=== PATIENT | male | born 2000 | race Caucasian/White ===

== ENCOUNTER 2024-07-19 02:32 | Emergency (ER) | payer BC, SELFPAY ==
--- NOTE | 2024-07-19 08:25 | EDPHYS ---
Physician Documentation [facility] Name: Jung Russell Age: 23 yrs Sex: Male : 2000 Arrival Date: 07/19/2024 Time: 02:32 Bed 15 Private MD: ED Physician Jeffry Arthur HPI: 07/19 03:11 This 23 yrs old White Male presents to ER via Ambulatory with complaints of Ear Pain, rn Cough, Congestion. 03:11 The patient presents with pain. Onset: The symptoms/episode began/occurred 5 day(s) rn ago. Modifying factors: The symptoms are alleviated by nothing, the symptoms are aggravated by nothing. Severity of symptoms: At their worst the symptoms were moderate in the emergency department the symptoms have improved. The patient has not experienced similar symptoms in the past. Patient reports 5 days of cough, congestion and left ear pain. Left ear pain got worse and worse until this morning felt some relief but noticed some drainage out of left ear. No fever or chills. Decreased hearing left ear. Historical: - Allergies: 02:53 No Known Allergies; cp4 - Immunization history:: Adult Immunizations up to date. - Infectious Disease History:: Denies. - Social history:: Smoking status: Patient denies any tobacco usage or history of. - Family history:: not pertinent. - Hospitalizations: : No recent hospitalization is reported. ROS: 03:11 Constitutional: Negative for fever, chills, and weight loss, ENT: Positive for rn congestion and left ear pain Cardiovascular: Negative for chest pain, palpitations, and edema, Respiratory: Positive for cough, negative for shortness of breath Abdomen/GI: Negative for abdominal pain, nausea, vomiting, diarrhea, and constipation, MS/Extremity: Negative for injury and deformity, Exam: 03:11 Constitutional: This is a well developed, well nourished patient who is awake, alert, rn and in no acute distress. Head/Face: Normocephalic, atraumatic. Eyes: Periorbital areas with no swelling, redness, or edema. ENT: Left TM erythematous and swollen. No obvious perforation. Yellow canal drainage Vital Signs: 02:51 BP 136 / 77; Pulse 87; Resp 18; Temp 97.9; Pulse Ox 98% ; Weight 68.04 kg; Height 6 ft. cp4 0 in. ; Pain 9/10; 03:37 BP 117 / 58; Pulse 84; Resp 18; Pulse Ox 99% ; cp4 02:51 Body Mass Index 20.34 (68.04 kg, 182.88 cm) cp4 02:51 Pain Scale: Adult cp4 MDM: 02:48 Medical Screening Exam initiated rn 03:11 Differential diagnosis: otitis media, otitis externa, ruptured TM, acute otalgia, rn serotympanum. Data reviewed: vital signs, nurses notes, and as a result, I will discharge patient. Counseling: I had a detailed discussion with the patient and/or guardian regarding the historical points, exam findings, and any diagnostic results supporting the discharge/admit diagnosis, the need for outpatient follow up, to return to the emergency department if symptoms worsen or persist or if there are any questions or concerns that arise at home. Special discussion: I discussed with the patient/guardian in detail that at this point there is no indication for admission to the hospital. It is understood, however, that if the symptoms persist or worsen the patient needs to return immediately for re-evaluation. Administered Medications: 03:37 Drug: Amoxicillin-Clavulanate PO 875 mg PO once Route: PO; cp4 03:37 Follow up: Response: No adverse reaction cp4 Disposition Summary: 07/19/24 03:16 Discharge Ordered Notes: Location: Home rn Problem: new rn Symptoms: have improved rn Condition: Stable rn Diagnosis - Otitis media, unspecified, left ear rn Followup: rn - With: Private Physician - When: As needed - Reason: Recheck today's complaints, Re-evaluation by your physician Discharge Instructions: - Discharge Summary Sheet rn - Otitis Media, Adult rn Forms: - Medication Reconciliation Form rn - Antibiotic skeins yarn examiner - Prescription Opioid Use rn - Patient Portal Instructions rn - Leadership Thank You Letter rn Prescriptions: - gabapentin 100 mg Oral capsule - take 1 capsule ORAL route 2 times per day As needed; 14 capsule; Refills: 0, rn Product Selection Permitted - Augmentin 875-125 mg Oral Tablet - take 1 tablet ORAL route every 12 hours for 10 days; 20 tablet; Refills: 0, rn Product Selection Permitted Signatures: Jeffry Arthur MD MD rn Potter, Christina cp4
--- NOTE | 2024-07-19 08:25 | ER ---
Nurse's Notes [facility] Name: Jung Russell Age: 23 yrs Sex: Male : 2000 Arrival Date: 07/19/2024 Time: 02:32 Bed 15 Private MD: Diagnosis: Otitis media, unspecified, left ear Presentation: 07/19 02:51 Chief complaint: Patient states: left ear pain and generalized body aches. States ear cp4 started draining today. Coronavirus screen: Client denies travel out of the [place] in the last 14 days. At this time, the client does not indicate any symptoms associated with coronavirus-19. Ebola Screen: Patient negative for fever greater than or equal to 101.5 degrees Fahrenheit, and additional compatible Ebola Virus Disease symptoms Patient denies exposure to infectious person. Patient denies travel to an Ebola-affected area in the 21 days before illness onset. No symptoms or risks identified at this time. Initial Sepsis Screen: Does the patient meet any 2 criteria? No. Patient's initial sepsis screen is negative. Does the patient have a suspected source of infection? No. Patient's initial sepsis screen is negative. Risk Assessment: Do you want to hurt yourself or someone else? Patient reports no desire to harm self or others. Onset of symptoms was July 15, 2024. 02:51 Method Of Arrival: Ambulatory cp4 02:51 Acuity: ERASMO 4 cp4 Triage Assessment: 02:53 General: Appears in no apparent distress. comfortable, Behavior is calm, cooperative, cp4 appropriate for age. Pain: Complains of pain in left ear. EENT: No deficits noted. Pinna with no deformity noted on left ear. Neuro: Level of Consciousness is awake, alert, obeys commands, Oriented to person, place, time, situation. Cardiovascular: Patient's skin is warm and dry. Respiratory: Airway is patent Respiratory effort is even, unlabored. GI: No signs and/or symptoms were reported involving the gastrointestinal system. : No signs and/or symptoms were reported regarding the genitourinary system. Derm: No signs and/or symptoms reported regarding the dermatologic system. Musculoskeletal: No signs and/or symptoms reported regarding the musculoskeletal system. Historical: - Allergies: 02:53 No Known Allergies; cp4 - Immunization history:: Adult Immunizations up to date. - Infectious Disease History:: Denies. - Social history:: Smoking status: Patient denies any tobacco usage or history of. - Family history:: not pertinent. - Hospitalizations: : No recent hospitalization is reported. Screenin:55 [facility] ED Fall Risk Assessment (Adult) History of falling in the last 3 months, cp4 including since admission No falls in past 3 months (0 pts) Confusion or Disorientation No (0 pts) Intoxicated or Sedated No (0 pts) Impaired Gait No (0 pts) Mobility Assist Device Used No (0 pt) Altered Elimination No (0 pt) Score/Fall Risk Level 0 - 2 = Low Risk Oriented to surroundings, Maintained a safe environment, Assessed \T\ reinforced patient's understanding of fall precautions, Hourly rounding (assess needs \T\ fall precautionary measures) done. Abuse screen: Denies threats or abuse. Nutritional screening: No deficits noted. Tuberculosis screening: No symptoms or risk factors identified. Assessment: 02:55 Reassessment: No changes from previously documented assessment. cp4 Vital Signs: 02:51 BP 136 / 77; Pulse 87; Resp 18; Temp 97.9; Pulse Ox 98% ; Weight 68.04 kg; Height 6 ft. cp4 0 in. ; Pain 9/10; 03:37 BP 117 / 58; Pulse 84; Resp 18; Pulse Ox 99% ; cp4 02:51 Body Mass Index 20.34 (68.04 kg, 182.88 cm) cp4 02:51 Pain Scale: Adult cp4 ED Course: 02:45 Patient arrived in ED. gm2 02:48 Jeffry Arthur MD is Attending Physician. rn 02:48 Ida David is Primary Nurse. cp4 02:53 Triage completed. cp4 02:53 Arm band placed on right wrist. Patient placed in waiting room. cp4 02:55 Bed in low position. Call light in reach. Side rails up X 1. Provided Education on: ear cp4 pain. 02:55 No provider procedures requiring assistance completed. cp4 03:37 intact, bleeding controlled, No redness/swelling at site. Pressure dressing applied. cp4 Administered Medications: 03:37 Drug: Amoxicillin-Clavulanate PO 875 mg PO once Route: PO; cp4 03:37 Follow up: Response: No adverse reaction cp4 Medication: 02:55 VIS not applicable for this client. cp4 Outcome: 03:16 Discharge ordered by . rn 03:37 Discharged to home ambulatory, cp4 03:37 Condition: stable 03:37 Discharge instructions given to patient, Instructed on discharge instructions, follow up and referral plans. medication usage, Demonstrated understanding of instructions, follow-up care, medications, Prescriptions given X 2, 03:38 Patient left the ED. cp4 Signatures: Jeffry Arthur MD MD rn Potter, Christina cp4 Mitchell, Ginger [facility]
[2024-07-19 09:03] VITALS: TEMP 97.9
[2024-07-19 09:12] VITALS: BP 117/58; O2SAT 99
== END 2024-07-19 03:38 | disposition home or self-care (01) ==
LOC: ER 02:32
DX: H66.92 Otitis media, unspecified, left ear (principal); R05.9 Cough, unspecified
CPT/HCPCS: 99283

== ENCOUNTER 2024-08-01 21:37 | Emergency (ER) | payer BC ==
--- NOTE | 2024-08-01 22:27 | EDPHYS ---
Physician Documentation [facility] Name: Jung Russell Age: 23 yrs Sex: Male : 2000 Arrival Date: 08/01/2024 Time: 21:37 Bed DX3 Private MD: ED Physician Tyrone Dawkins HPI: 08/02 01:48 This 23 yrs old Male presents to ER via Ambulatory with complaints of Difficulty sb4 Swallowing, Sore Throat. 01:48 Patient states that he has been sick on and off for about 1 month now. States that 2 sb4 weeks ago, he was seen here and diagnosed with an ear infection. States that he did finish with his course of antibiotics and that improved. He states that over the past week though his throat has been hurting him, becoming more swollen, and making it painful and difficult for him to swallow. He denies any known fevers. He denies any GI symptoms. Historical: - Allergies: 08/01 21:55 No Known Allergies; cm10 - PMHx: 21:55 None; cm10 - Immunization history:: Adult Immunizations up to date. - Infectious Disease History:: Denies. - Social history:: Smoking status: unknown. ROS: 08/02 01:48 Constitutional: Negative for fever, chills, and weight loss, sb4 ENT: Positive for sore throat, All other systems are negative, Exam: 01:48 Constitutional: This is a well developed, well nourished patient who is awake, alert, sb4 and in no acute distress. Head/Face: Normocephalic, atraumatic. Eyes: Extra-ocular motions intact. Periorbital areas with no swelling, redness, or edema. Cardiovascular: Regular rate and rhythm with a normal S1 and S2. Respiratory: No increased work of breathing, no retractions or nasal flaring. Skin: Warm, dry with normal turgor. Normal color with no rashes, no lesions, and no evidence of cellulitis. 01:48 ENT: Posterior pharynx: Tonsils: bilaterally enlarged, with erythema, with exudate, Vital Signs: 08/01 21:56 BP 129 / 72; Pulse 84; Resp 16; Pulse Ox 96% on R/A; Weight 72.57 kg; Height 6 ft. 0 cm10 in. ; Pain 7/10; 22:00 Temp 98.6(O); cm10 21:56 Body Mass Index 21.70 (72.57 kg, 182.88 cm) cm10 21:56 Pain Scale: Adult cm10 [place] Coma Score: 22:44 Eye Response: spontaneous(4). Motor Response: obeys commands(6). Verbal Response: bm8 oriented(5). Total: 15. MDM: 21:59 Medical Screening Exam initiated sb4 08/02 01:50 Data reviewed: vital signs, nurses notes, lab test result(s), and as a result, I will sb4 discharge patient. Counseling: I had a detailed discussion with the patient and/or guardian regarding the historical points, exam findings, and any diagnostic results supporting the discharge/admit diagnosis, lab results, the need for outpatient follow up, for definitive care. 08/01 21:58 Order name: Strep; Complete Time: 22:45 sb4 08/01 22:47 Order name: Throat Culture EDMS Administered Medications: No medications were administered Disposition: 02:37 Co-signature as Attending Physician, Tyrone Dawkins MD I reviewed the patient's care rt provided by the Advanced Practice Provider and agree with the diagnosis and treatment plan. Disposition Summary: 08/01/24 22:26 Discharge Ordered Notes: Location: Home sb4 Problem: new sb4 Symptoms: have improved sb4 Condition: Stable sb4 Diagnosis - Acute pharyngitis, unspecified sb4 Followup: sb4 - With: Brett Greenwood DO - When: 1 week - Reason: Recheck today's complaints, Re-evaluation by your physician Discharge Instructions: - Discharge Summary Sheet sb4 - Pharyngitis, [id number] sb4 Forms: - Antibiotic Education sb4 - Patient Portal Instructions sb4 - Leadership Thank You Letter sb4 Prescriptions: - azithromycin 250 mg Oral tablet - take 1 dose pack ORAL route as directed on dose pack For 250 mg dose pack: take sb4 500 mg today (day 1), then 250 mg for 4 days (days 2-5); 1 Pack; Refills: 0, Product Selection Permitted Signatures: Dispatcher [employer] EDDoris Olivares PA-C PA-C sb4 Tyrone Dawkins MD MD rt Leana Zelaya RN RN cm10
--- NOTE | 2024-08-01 22:27 | ER ---
Nurse's Notes [facility] Name: Jung Russell Age: 23 yrs Sex: Male : 2000 Arrival Date: 08/01/2024 Time: 21:37 Bed DX3 Private MD: Diagnosis: Acute pharyngitis, unspecified Presentation: 08/01 21:54 Chief complaint: Patient states: SORE THROAT ONSET 1.5 WEEKS AGO. PT ALSO REPORTS PAIN cm10 WITH SWALLOWING. Coronavirus screen: Client denies travel out of the [place] in the last 14 days. Ebola Screen: Patient denies travel to an Ebola-affected area in the 21 days before illness onset. No symptoms or risks identified at this time. Initial Sepsis Screen: Does the patient meet any 2 criteria? No. Patient's initial sepsis screen is negative. Does the patient have a suspected source of infection? No. Patient's initial sepsis screen is negative. Risk Assessment: Do you want to hurt yourself or someone else? Patient reports no desire to harm self or others. Onset of symptoms was August 01, 2024. 21:54 Method Of Arrival: Ambulatory cm10 21:54 Acuity: ERASMO 4 cm10 Triage Assessment: 21:55 General: Appears in no apparent distress. comfortable, Behavior is calm, cooperative. cm10 Pain: Complains of pain in THROAT. EENT: Throat is reddened has patchy exudate Reports pain when swallowing. Neuro: No deficits noted. Level of Consciousness is awake, alert, obeys commands, Oriented to person, place, time, situation, Appropriate for age. Respiratory: No deficits noted. Airway is patent Respiratory effort is even, unlabored, Respiratory pattern is regular, symmetrical. Musculoskeletal: No deficits noted. Range of motion: intact in all extremities. Historical: - Allergies: 21:55 No Known Allergies; cm10 - PMHx: 21:55 None; cm10 - Immunization history:: Adult Immunizations up to date. - Infectious Disease History:: Denies. - Social history:: Smoking status: unknown. Screenin:44 [facility] ED Fall Risk Assessment (Adult) History of falling in the last 3 months, bm8 including since admission No falls in past 3 months (0 pts) Confusion or Disorientation No (0 pts) Intoxicated or Sedated No (0 pts) Impaired Gait No (0 pts) Mobility Assist Device Used No (0 pt) Altered Elimination No (0 pt) Score/Fall Risk Level 0 - 2 = Low Risk Oriented to surroundings, Maintained a safe environment, Educated pt \T\ family on fall prevention, incl call for assistance when getting out of bed, Assessed \T\ reinforced patient's understanding of fall precautions, Hourly rounding (assess needs \T\ fall precautionary measures) done, Used ambulatory aids as needed (educated on \T\ assisted with), Used gait belt as appropriate. Abuse screen: Denies threats or abuse. Nutritional screening: No deficits noted. Tuberculosis screening: No symptoms or risk factors identified. Assessment: 22:44 Reassessment: Patient appears in no apparent distress at this time. No changes from bm8 previously documented assessment. Patient and/or family updated on plan of care and expected duration. Pain level reassessed. Patient is alert, oriented x 3, equal unlabored respirations, skin warm/dry/pink. General: Appears in no apparent distress. comfortable, Behavior is calm, cooperative, appropriate for age. Neuro: No deficits noted. Level of Consciousness is awake, alert, obeys commands, Oriented to person, place, time, situation, Appropriate for age. Respiratory: No deficits noted. Reports cough that is Airway is patent Respiratory effort is even, unlabored, Respiratory pattern is regular, symmetrical, Breath sounds are clear bilaterally. Vital Signs: 21:56 BP 129 / 72; Pulse 84; Resp 16; Pulse Ox 96% on R/A; Weight 72.57 kg; Height 6 ft. 0 cm10 in. ; Pain 7/10; 22:00 Temp 98.6(O); cm10 21:56 Body Mass Index 21.70 (72.57 kg, 182.88 cm) cm10 21:56 Pain Scale: Adult cm10 [place] Coma Score: 22:44 Eye Response: spontaneous(4). Motor Response: obeys commands(6). Verbal Response: bm8 oriented(5). Total: 15. ED Course: 21:43 Patient arrived in ED. gm2 21:43 Doris Nelson PA-C is PHCP. sb4 21:43 Tyrone Dawkins MD is Attending Physician. sb4 21:55 Triage completed. cm10 21:56 Arm band placed on right wrist. Patient placed in waiting room. cm10 21:58 Strep swab sent to lab. cm10 22:00 Strep Sent. cm10 22:26 Brett Greenwood DO is Referral Physician. sb4 22:44 Julián Mas, RN is Primary Nurse. bm8 22:44 Patient has correct armband on for positive identification. Bed in low position. Call bm8 light in reach. Side rails up X 1. Provided Education on: post er care. 22:44 No provider procedures requiring assistance completed. Patient did not have IV access bm8 during this emergency room visit. Administered Medications: No medications were administered Medication: 22:44 VIS not applicable for this client. bm8 Outcome: 22:26 Discharge ordered by MD. sb4 22:44 Discharged to home ambulatory, bm8 22:44 Condition: stable 22:44 Discharge instructions given to patient, Instructed on discharge instructions, follow up and referral plans. no drinking with medication, no driving heavy equipment, medication usage, Demonstrated understanding of instructions, follow-up care, Prescriptions given X 1, 22:47 Patient left the ED. bm8 Signatures: Doris Nelson PA-C PABalta [email or web address] Leana Zelaya, RN RN cm10 She Camacho gm2 Julián Mas, RN RN bm8
[2024-08-02 04:08] VITALS: BP 129/72; TEMP 98.6; O2SAT 96
== END 2024-08-01 22:47 | disposition home or self-care (01) ==
LOC: ER 21:37
DX: J02.9 Acute pharyngitis, unspecified (principal)
CPT/HCPCS: 87070; 87081; 99283